=== PATIENT | female | born 1980 ===

== ENCOUNTER 2018-01-17 07:30 | Inpatient (IN) | payer OTHER ==
--- NOTE | 2018-01-18 21:19 | PDOC.LDHP ---
Labor and Delivery H&P Chief complaint: scheduled section HPI: 37 yo @ 39w2d by stated ED (and sono approx 24 weeks) c/w BWVC sono @ 34 weeks who presents for RCD. Pt has h/o CD x1 due to arrest of dilation in 2015. Current gestational age (weeks): 39 Due date: 01/23/18 Dating criteria: second trimester ultrasound Grav: 2 Para: 1 OB History Details: 1 CD Current complications: none Abnormal US findings: No Past Medical History: Anemia Current medications: pre-lilliam vitamins, iron Previous surgical history: low tranverse CS Allergies/Adverse Reactions: Allergies Allergy/AdvReac Type Severity Reaction Status Date / Time No Known Allergies Allergy Verified 01/19/18 07:02 Social history: none - Physical Exam Vital signs reviewed and normal: yes Heart: RRR Lungs: nonlabored breathing Abdomen: gravid Extremeties: no edema FHT: category 1 (120s, mod lluvia, +accels, no decels) [place] contractions every: irregular ctx - OB Labs Blood type: B RH: positive Antibody Screen: negative HIV: negative RPR: negative HEPSAg: negative 1 hour GCT: negative GBS: negative Urine drug screen: not done Rubella: immune - Assessment 39w2d IUP Prior CD x1 - Plan Plan: to OR for section, informed consent obtained, anesthesia consult for pain management
[2018-01-19] MEDS ORDERED: Promethazine HCl 25 MG/ML VIAL IM PRN ×2 (05:56→08:34)
[2018-01-19] MEDS ORDERED: Ondansetron HCl/PF 4 MG/2 ML Vial IVP PRN ×3 (05:56→08:35)
[2018-01-19] MEDS ORDERED: CEFAZOLIN/Water 2 GM/20 ML SYRINGE SLOW IVP SCH (05:56)
[2018-01-19] MEDS ORDERED: Bicitra 30 ML UDCUP PO SCH (05:56)
[2018-01-19 06:45] LABS: Hemoglobin 11.1 g/dL (12.0-16.0); Mean Corpuscular HGB CONC 32.4 g/dL (32.0-36.0); Mean Corpuscular Hemoglobin 32.9 pg (27.0-31.0); Mean Platelet Volume 10.5 fL (7.4-10.4); Platelet Count 156 thou/uL (130-400); Red Blood Cell (RBC) Count 3.37 mill/uL (4.20-5.40); White Blood Cell (WBC) Count 6.7 thou/uL (4.8-10.8)
[2018-01-19] MEDS ORDERED: PHENYLEPHRINE-NS 100 MCG/ML 10 ML SYRINGE ONE ×2 (07:14→13:56)
[2018-01-19] MEDS ORDERED: Morphine PF 1 MG/ML SYR ONE (07:14)
[2018-01-19] MEDS ORDERED: Oxytocin 10 UNITS/ML VIAL ONE (07:14)
[2018-01-19 07:19] LABS: HIV (1/2) Antibody/Antigen Non-Reactive (NonReactive); HIV 1/2 INDEX 0.09 S/CO (<1.00); Hep B Surf Ag Non-Reactive S/CO (NonReactive)
[2018-01-19 07:20] LABS: Syphilis Antibody Nonreactive (Nonreactive); Syphilis Antibody Index 0.04 S/CO (<1.00 Non-Reactive)
[2018-01-19] MEDS ORDERED: Ondansetron HCl/PF 4 MG/2 ML Vial ONE ×2 (07:46→13:56)
[2018-01-19] MEDS ORDERED: Bupivacaine 0.75% W/DEXTROSE 8.25% 2 ML AMP ONE (07:46)
[2018-01-19] MEDS ORDERED: Glycopyrrolate 0.2 MG/ML 5 ML SYRINGE ONE ×2 (07:47→13:56)
[2018-01-19] MEDS ORDERED: Fentanyl 100 MCG/2 ML VIAL ONE (07:49)
[2018-01-19] MEDS ORDERED: Ketorolac Tromethamine 30 MG/ML VIAL ONE ×2 (08:21→13:56)
[2018-01-19] MEDS ORDERED: Promethazine HCl 25 MG SUPP PR PRN (08:34)
[2018-01-19] MEDS ORDERED: Naloxone HCl 0.4 mg/ml Vial IVP PRN ×2 (08:34)
[2018-01-19] MEDS ORDERED: Naloxone HCl 0.4 mg/ml Vial IV PRN (08:34)
[2018-01-19] MEDS ORDERED: Eucerin (Mineral Oil/Petrolatum,White) 30 gm Jar TOP PRN (08:34)
[2018-01-19] MEDS ORDERED: diphenhydrAMINE 50 MG/ML VIAL IVP PRN (08:34)
[2018-01-19] MEDS ORDERED: Meperidine HCl/PF 25 MG/ML VIAL SLOW IVP PRN (08:35)
[2018-01-19] MEDS ORDERED: HYDROmorphone 2 MG/ML VIAL SLOW IVP PRN (08:35)
--- NOTE | 2018-01-19 08:41 | PDOC.OPDEL ---
OB Operative/Delivery Note Delivery Dr/Surgeon: Lashay Weber DO Assist: Vira Giraldo MD Pre-Delivery Diagnosis: scheduled section Procedure/Post Delivery Dx: repeat low transverse CS Weeks gestation: 39 Anesthesia: spinal - Findings A Sex: male - 1 min: 8 - 5 min: 9 - Additional Findings/Plan Placenta delivered: spontaneous findings: low transverse hysterotomy without extension, normal uterus, normal tubes, normal ovaries Estimated blood loss: 800 cc Compilations/Other Findings: Clear AF Normal appearing placenta. Infant in cephalic presentation Post delivery plan: routine recovery (Dictation # [id number])
[2018-01-19] MEDS ORDERED: Communication Order-Pharmacy FS SCH (08:45)
[2018-01-19] MEDS ORDERED: LR / Pitocin 40 units/1000 ml 1,000 ML ONE (08:51)
[2018-01-19] MEDS ORDERED: Diprivan 0 ML ONE (08:58)
--- NOTE | 2018-01-19 12:03 | OP ---
PREOPERATIVE DIAGNOSES: 1. A 39-week 2-day intrauterine . 2. Previous delivery x1. POSTOPERATIVE DIAGNOSES: 1. A 39-week 2-day intrauterine . 2. Previous delivery x1. PROCEDURE PERFORMED: Repeat low transverse section via Pfannenstiel skin incision. SURGEON: Lashay Weber D.O. TUNNEL FORM PLACING SUPERVISOR: Robyn Giraldo M.D. COMPLICATIONS: None. ESTIMATED BLOOD LOSS: 800 mL. INTRAVENOUS FLUIDS: 1700 mL. URINE OUTPUT: 500 mL. FINDINGS: Dense scar tissue throughout the subcutaneous layer down to the level of the fascia, thin adhesions to the lower uterine segment to the dome of the bladder. Otherwise, normal appearing uterus, fallopian tubes and ovaries bilaterally. A viable male , Apgars 8 and 9 in cephalic presentation, clear amniotic fluid, and normal appearing placenta. INDICATIONS FOR THE PROCEDURE: Ms. Cooper is a 37-year-old G2, P1 at 39 weeks and 2 days who presented for repeat delivery. The patient had a history of 1 prior and due to close proximity of , desired repeat delivery. PROCEDURE IN DETAIL: The patient was brought to the operating room and she was placed under spinal anesthesia, she was placed in supine position. A Torre catheter was placed. The patient was given Ancef preoperatively. She was prepped and draped in sterile fashion. An official timeout was performed. Anesthesia was assessed and proven to be adequate. Pfannenstiel skin incision was made using the scalpel removing the previous keloid scar. This was carried down to underlying fascial layer using both the scalpel and the Bovie. There was dense tissue within the subcutaneous layer down to the level of the fascia. Fascia was incised along the midline using scalpel and extended bilaterally using the Flores scissors. Superior aspect of the fascial incision was grasped using Janiya's and elevated. This was dissected free from the underlying rectus abdominis muscles using the scalpel. The inferior aspect of the fascial incision was grasped using Janiya's and dissected free from underlying rectus abdominis muscles using Flores scissors. The peritoneum was then identified, elevated, and incised using Metzenbaum scissors. The rectus abdominis muscles were bluntly and the peritoneal incision was extended using blunt dissection. The Lefty O retractor was placed into the abdomen. A low transverse hysterotomy was made using the scalpel through the previous hysterotomy site. The hysterotomy was extended using both blunt and sharp dissection and membranes were ruptured and clear amniotic fluid. The was then delivered in cephalic presentation. The shoulder of the was difficult to deliver because of the contraction of the uterus after the head was delivered. Therefore, the hysterotomy was further extended using Flores scissors. The infant was then delivered without complication. Infant's cord was clamped and cut. The infant was handed to the waiting Neonatology team. Cord sample and cord blood were obtained. The placenta was delivered spontaneously intact. Placenta was delivered spontaneously and intact. The uterus was cleared of all clot and debris. Hysterotomy was closed in a running locking fashion using #1 Monocryl. There was an area along the right apex of the hysterotomy, which required additional ozpyen-ow-[id number] stitch to achieve hemostasis. The pelvis was irrigated and cleared of all clot and debris and the hysterotomy was hemostatic. The Lefty O retractor was removed from the abdomen. The peritoneum was closed in a running fashion using chromic and the rectus abdominis muscles were evaluated and hemostatic with use of Bovie. The fascia was closed using 0 PDS. Subcutaneous layer was copiously irrigated and hemostatic using the Bovie. Subcutaneous layer was closed using 3-0 Vicryl and the skin was closed using 4-0 Monocryl and Dermabond. The patient tolerated the procedure well. There were no complications. All counts were correct x3. Mother and baby were transferred to routine recovery. MORGAN
[2018-01-19] MEDS ORDERED: diphenhydrAMINE 25 MG CAP PO PRN (12:22)
[2018-01-19] MEDS ORDERED: Acetaminophen 325 MG TAB PO PRN (12:22)
[2018-01-19] MEDS ORDERED: HYDROcodone/Acetaminophen 5/325 mg Tablet PO PRN (12:22)
[2018-01-19] MEDS ORDERED: Prenatal Vitamin 1 TAB PO SCH ×2 (12:22→12:30)
[2018-01-19] MEDS ORDERED: Lanolin Ointment 7 GM TUBE TOP PRN (12:22)
[2018-01-19] MEDS ORDERED: LR w/ Pitocin 40 units/1000 ML BAG IV SCH (12:22)
[2018-01-19] MEDS ORDERED: Methylergonovine 0.2 MG/ML VIAL IM PRN (12:22)
[2018-01-19] MEDS ORDERED: Misoprostol 200 MCG TAB PR SCH (12:22)
[2018-01-19] MEDS ORDERED: Ferrous Sulfate 325 MG TAB PO SCH (12:30)
[2018-01-19] MEDS ORDERED: ePHEDrine/0.9% NaCl/PF SYRINGE 50 mg/10 ml ONE (13:56)
[2018-01-19] MEDS: Ketorolac Tromethamine 30 MG/ML VIAL IVP PRN ×2 (15:06→20:58)
[2018-01-19] MEDS: Ibuprofen 800 MG TAB PO SCH ×2 (15:07→22:34)
[2018-01-19] MEDS: Lactated Ringer's 1,000 ML IV SCH ×3 (15:46→22:34)
[2018-01-19] MEDS: Ferrous Sulfate 325 MG TAB PO SCH (20:36)
[2018-01-19] MEDS: Simethicone Chewable 80 MG TAB PO PRN (20:58)
[2018-01-20] MEDS: Lactated Ringer's 1,000 ML IV SCH ×4 (03:20→20:58)
[2018-01-20] MEDS: Ibuprofen 800 MG TAB PO SCH ×3 (03:26→21:43)
[2018-01-20 05:56] LABS: #Eosinphils 0.1 thou/uL (0.0-0.7); #Lymphocytes 2.1 thou/uL (1.20-3.40); #Monocytes 0.8 thou/uL (0.11-0.59); #Neutrophils 8.9 thou/uL (1.40-6.50); %Basophils 0.4 % (0.0-1.0); %Eosinophils 0.6 % (0.0-10.0); %Lymphocytes 17.4 % (21.0-51.0); %Monocytes 6.4 % (0.0-10.0); %Neutrophils 75.3 % (42.0-75.0); Hemoglobin 10.2 g/dL (12.0-16.0); Mean Corpuscular HGB CONC 33.6 g/dL (32.0-36.0); Mean Corpuscular Hemoglobin 34.3 pg (27.0-31.0); Mean Platelet Volume 10.4 fL (7.4-10.4); Platelet Count 163 thou/uL (130-400); Red Blood Cell (RBC) Count 2.97 mill/uL (4.20-5.40); White Blood Cell (WBC) Count 11.8 thou/uL (4.8-10.8)
--- NOTE | 2018-01-20 08:09 | PRG ---
DATE OF SERVICE: 01/20/2018 PRIMARY OB: Dr. Lashay Weber The patient is a 37-year-old female who is postop day #1 status post a scheduled repeat . S he reports she is tolerating p.o., voiding on her own, having decreased lochia and good pain control. PHYSICAL EXAMINATION: VITAL SIGNS: Blood pressure is 131/77, temperature 98.6, pulse of 73, respiratory rate of 16. GENERAL: She appears to be in no acute distress. She is alert and oriented, cooperative and pleasan t to interact with. HEENT: Normocephalic, atraumatic. ABDOMEN: Incision is clean, dry, and intact. Fundus is firm at the umbilicus -1. EXTREMITIES: Nontender, nonedematous. Her postoperative hemoglobin is 10.2, hematocrit 30.3, platelets of 163,000. ASSESSMENT AND PLAN: The patient is postoperative day #1 status post a repeat . The patien t has expressed strong desires to go home this evening. I will ask the oncoming BATTERY SERVICE TECHNICIAN Hospitalist, Dr. Acuna, to reevaluate for possible discharge this evening.
[2018-01-20] MEDS: Prenatal Vitamin 1 TAB PO SCH (08:50)
[2018-01-20] MEDS: Ferrous Sulfate 325 MG TAB PO SCH ×2 (08:50→20:57)
[2018-01-20] MEDS: Simethicone Chewable 80 MG TAB PO PRN ×2 (14:20→20:31)
[2018-01-20] MEDS: HYDROcodone/Acetaminophen 5/325 mg Tablet PO PRN (20:31)
[2018-01-21] MEDS: HYDROcodone/Acetaminophen 5/325 mg Tablet PO PRN (01:12)
[2018-01-21] MEDS: Ibuprofen 800 MG TAB PO SCH (01:12)
--- NOTE | 2018-01-21 06:30 | PDOC.PP ---
Post Progress Note Post Day #: 2 Subjective: Patient wants to go home today. She was asking to be released yesterday afternoon but agreed to stay until POD 2 today. Loni po well. PO intake tolerated: yes Flatus: yes Ambulation: yes Vital Signs (12 hours) Temp Pulse Resp BP 01/21/18 05:21 98.2 F 85 16 126/77 01/21/18 04:00 98.2 F 85 16 01/20/18 23:34 99.3 F 74 16 111/74 01/20/18 20:00 99.1 F 75 16 113/61 Weight Weight 6.138 oz - Physical Examination General: NAD Respiratory: clear to auscultation bilaterally Abdominal: + bowel sounds, no distention, appropriately TTP Extremities: negative homans (B) Skin: CS incision dry & intact (Sutured incision.) Neurological: no gross focal deficits Psychiatric: A&Ox3, normal affect Result Diagrams: 01/20/18 05:29 Additional Labs: Post Labs Blood Type B POSITIVE 01/19/18 06:20 Hep Bs Antigen Non-Reactive S/CO (NonReactive) 01/19/18 06:30 (1) Delivery by elective section Code(s): O82 - ENCOUNTER FOR DELIVERY WITHOUT INDICATION Status: Acute - Assessment/Plan Plan: POD2 s/p repeat CS. [employer] for discharge. Follow up in 2 weeks. RX placed in chart by Dr Weber ([place]
--- NOTE | 2018-01-21 06:31 | PDOC.EVN ---
Event Note - Event Note Event Note: DISCHARGE NOTE Admit: 01/19/18 Discharge date: 01/21/18 Patient seen by me POS 2 on 01/21/18 and cleared for discharge. She is S/P repeat CS. Incision C/D/I...sutured. Please see POD 2 progress note for details. Home with Wing per Dr Florentino Follow up in 2 weeks
[2018-01-21] MEDS: Ferrous Sulfate 325 MG TAB PO SCH (07:32)
[2018-01-21] MEDS: Prenatal Vitamin 1 TAB PO SCH (07:32)
[2018-01-21 08:48] VITALS: TEMP 98.3
[2018-01-21 08:49] VITALS: BP 130/87
== END 2018-01-21 09:53 | disposition home or self-care (01) | DRG 766 ==
LOC: L&D 01-19 05:26 → 3SW 01-19 12:14
PROVIDERS: ADMIT Obstetrics & Gynecology; ATTEND Obstetrics & Gynecology
PROC: 10D00Z1 Extraction of Products of Conception, Low, Open Approach (ICD-10-PCS; principal; 2018-01-19)
DX: O34.211 Maternal care for low transverse scar from previous cesarean delivery (principal); Z3A.39 39 weeks gestation of pregnancy; Z37.0 Single live birth
CPT/HCPCS: 36415; 51702; 85025; 85027; 86780; 86850; 86900; 86901; 87340; 87389; J1885; J2274; J2310; J2405; J2590; J2704; J3010; J3490